=== PATIENT | male | born 1980 | race Two or more races ===

== ENCOUNTER 2019-06-13 21:35 | Emergency (ER) | payer SELFPAY ==
[~2019-06-13] VITALS: Ht 160 cm; Wt 64.2 kg
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
[2019-06-13] MEDS ORDERED: HYDROcodone/APAP 5/325MG 1 TAB TABLET PO ONE (22:00)
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
[2019-06-13] MEDS ORDERED: HYDR-3164 PO (22:50)
[2019-06-13 23:01] VITALS: BP 122/82
== END 2019-06-13 23:09 | disposition home or self-care (01) ==
LOC: ER 21:35
DX: S09.8XXA Other specified injuries of head, initial encounter (principal); R42 Dizziness and giddiness; R06.02 Shortness of breath; R51 Headache; Y08.89XA Assault by other specified means, initial encounter; Y93.89 Activity, other specified; Y92.89 Other specified places as the place of occurrence of the external cause; Y99.8 Other external cause status
CPT/HCPCS: 70450; 71046; 72125; 99285

== ENCOUNTER 2019-12-01 16:08 | Emergency (ER) | payer SELFPAY ==
[~2019-12-01] VITALS: Ht 154.9 cm; Wt 63.6 kg
[~2019-12-01 16:08] MED LIST: HYDR-3164 PO
[2019-12-01 18:09] VITALS: BP 124/69
[2019-12-01 18:38] LABS: BILIRUBIN,URINE NEGATIVE (NEG); CLARITY,URINE CLEAR; COLOR,URINE YELLOW; NITRITE,URINE NEGATIVE (NEG); PROTEIN,URINE NEGATIVE (NEG-TRACE)
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
[2019-12-01 18:44] LABS: BACTERIA,URINE 0 /HPF (0-FEW); RBC,URINE 0 /HPF (0-2); WBC,URINE OCC /HPF (0-4)
[2019-12-01] MEDS ORDERED: AZITHROMYCIN 250 MG TABLET. PO ONE (18:45)
[2019-12-01] MEDS ORDERED: cefTRIAXone IM 250 MG VIAL IM ONE (18:45)
== END 2019-12-01 18:57 | disposition home or self-care (01) ==
LOC: ER 16:08
DX: Z20.2 Contact with and (suspected) exposure to infections with a predominantly sexual mode of transmission (principal); Z87.891 Personal history of nicotine dependence
CPT/HCPCS: 81001; 87491; 87591; 96372; 99283; J0696